=== PATIENT | female | born 1950 | race Caucasian/White ===

== ENCOUNTER 2020-03-14 21:45 | Emergency (ER) | payer MEDICARE ==
[~2020-03-14] VITALS: Ht 170.2 cm; Wt 110.9 kg
[2020-03-14] MEDS ORDERED: MAALOX/HYOSCYAMINE/LIDOCAINE 45 ML BTL ONE (22:22)
[2020-03-14] MEDS ORDERED: ONDANSETRON 2MG/ML, 2ML ONE (22:22)
--- NOTE | 2020-03-14 22:28 | NUR ---
[facility] PENDING LAB.
[2020-03-14] MEDS ORDERED: MAALOX/HYOSCYAMINE/LIDOCAINE 45 ML BTL PO ONE (22:30)
[2020-03-14] MEDS ORDERED: SODIUM CHLORIDE FLUSH 10ML SYR IVF ONE (22:30)
[2020-03-14] MEDS ORDERED: ONDANSETRON 2MG/ML, 2ML IVPush ONE (22:30)
[2020-03-14 22:55] LABS: BASOPHILS # (AUTO) 0.03 x10^3/uL (0-0.1); BASOPHILS % (AUTO) 0 % (0-1); EOSINOPHILS # (AUTO) 0.06 x10^3/uL (0-0.4); EOSINOPHILS % (AUTO) 1 % (1-7); LYMPHOCYTES # (AUTO) 1.22 x10^3/uL (1-3.4); LYMPHOCYTES % (AUTO) 15 % (22-44); MD NO; MEAN CORPUSCULAR HEMOGLOBIN 32.7 pg (27.0-34.8); MEAN CORPUSCULAR HGB CONC 33.8 g/dL (32.4-35.8); MEAN CORPUSCULAR VOLUME 96.6 fL (80-100); MONOCYTES % (AUTO) 4 % (2-9); NEUTROPHILS # (AUTO) 6.69 x10^3/uL (1.8-6.8); NEUTROPHILS % (AUTO) 81 % (42-75); PLATELET COUNT 312 x10^3/uL (130-400); RED BLOOD COUNT 4.08 x10^6/uL (3.82-5.3); RED CELL DISTRIBUTION WIDTH 12.8 % (9.6-15.2)
[2020-03-14 23:05] LABS: MICROSCOPIC NOT IND
[2020-03-14 23:06] LABS: ALANINE AMINOTRANSFERASE 26 U/L (12-78); ALBUMIN 4.2 g/dL (3.4-5.0); ANION GAP 7 mmol/L (5-15); CALCIUM 9.3 mg/dL (8.5-10.1); CHLORIDE 98 mmol/L (98-107); CREATININE 0.93 mg/dL (0.55-1.02)
[2020-03-14 23:11] LABS: ALKALINE PHOSPHATASE 104 U/L (45-117); BILIRUBIN,TOTAL 0.5 mg/dL (0.2-1.0); TOTAL PROTEIN 7.3 g/dL (6.4-8.2); TROPONIN I < 0.015 ng/mL (0.000-0.045)
[2020-03-14] MEDS ORDERED: LORazepam 2 MG/ML, 1ML IVPush ONE (23:30)
--- NOTE | 2020-03-14 23:32 | NUR ---
PT BACK FROM IMAGING AT THIS TIME. RECONNECTED TO MONITORING, CALL LIGHT WITHIN REACH, UPDATED ON POC.
[2020-03-14] MEDS ORDERED: OMNIPAQUE 350 MG/ML, 100ML BOTTLE ONE (23:36)
[2020-03-15 00:35] VITALS: BP 134/59
== END 2020-03-15 01:02 | disposition home or self-care (01) ==
LOC: ED 22:30
DX: K29.00 Acute gastritis without bleeding (principal); R10.13 Epigastric pain; R10.84 Generalized abdominal pain; R11.10 Vomiting, unspecified; R42 Dizziness and giddiness; R07.89 Other chest pain; R51 Headache; E11.9 Type 2 diabetes mellitus without complications; R94.31 Abnormal electrocardiogram [ECG] [EKG]
CPT/HCPCS: 36415; 74177; 80053; 81003; 83690; 84484; 85025; 93005; 96374; 99285; J2405; Q9967